=== PATIENT | male | born 1960 | race Caucasian/White ===

== ENCOUNTER 2019-11-25 16:05 | Observation (INO) | payer BC ==
[2019-11-25 16:37] LABS: Absolute Lymphocytes (CBC) 1.9 K/uL (0.7-4.9); Basophils % 0.5 % (0-1.3); Hematocrit 40.9 % (39.6-49.0); Lymphocytes % 17.4 % (15.3-44.8); MPV 8.2 fL (7.6-11.3); RBC Red Blood Cell Count 4.22 M/uL (4.33-5.43)
[2019-11-25 16:38] LABS: Protime INR 0.94
[2019-11-25 17:04] LABS: ALT/SGPT 52 U/L (12-78); Albumin 3.8 g/dL (3.4-5.0); Alkaline Phosphatase 84 U/L (45-117); BUN Blood Urea Nitrogen 23 mg/dL (7-18); Bicarbonate 25 mmol/L (21-32); Bilirubin Direct < 0.1 mg/dL (0-0.2); Bilirubin Total 0.4 mg/dL (0.2-1.0); Glucose Level 227 mg/dL (74-106); NT PRO-BNP 9 pg/mL (<125); Protein, Total 8.2 g/dL (6.4-8.2); Sodium Level 136 mmol/L (136-145); Troponin (Emerg Dept Use Only) < 0.02 ng/mL (0.0-0.045)
[2019-11-25 17:06] LABS: AST/SGOT 30 U/L (15-37); Magnesium 2.3 mg/dL (1.8-2.4); Potassium 4.4 mmol/L (3.5-5.1)
--- NOTE | 2019-11-25 17:10 | RAD REPORT ---
EXAM DESCRIPTION: RAD - Chest Single View - 11/25/2019 4:49 pm CLINICAL HISTORY: CHEST PAIN COMPARISON: None TECHNIQUE: AP portable chest image was obtained 11/25/2019 4:49 pm . FINDINGS: Lungs are clear. Heart and vasculature are normal. No measurable pleural effusion and no p neumothorax. No acute bony abnormality seen. No acute aortic findings suspected. IMPRESSION: No acute cardiopulmonary process.
--- NOTE | 2019-11-25 17:25 | ER ---
Nurse's Notes [facility] Name: Jasper Waller III Age: 59 yrs Sex: Male : 1960 Arrival Date: 11/25/2019 Time: 16:08 Bed 4 Private MD: Diagnosis: Chest pain, unspecified Presentation: 11/24 16:11 Chief complaint: EMS states: midsternal chest pain radiating to left shoulder, started iw at work at 2 pm, pain feels like pressure, denies cough, SOB or fever, EMs gave 1 SL Nitro pain came down to 2/10, initially was 10/10. Coronavirus screen: Proceed with normal triage. Patient denies a cough. Patient denies shortness of breath or difficulty breathing. Patient denies measured and/or subjective temperature greater than 100.4F prior to today's visit. Patient denies travel on a cruise ship or to a country the [facility] currently lists as an affected area. Patient denies contact with known and/or suspected case of COVID-19. Ebola Screen: Patient negative for fever greater than or equal to 101.5 degrees Fahrenheit, and additional compatible Ebola Virus Disease symptoms Patient denies exposure to infectious person. Patient denies travel to an Ebola-affected area in the 21 days before illness onset. No symptoms or risks identified at this time. Initial Sepsis Screen: Does the patient meet any 2 criteria? No. Patient's initial sepsis screen is negative. Does the patient have a suspected source of infection? No. Patient's initial sepsis screen is negative. Risk Assessment: Do you want to hurt yourself or someone else? Patient reports no desire to harm self or others. Onset of symptoms was November 25, 2019. 16:11 Method Of Arrival: EMS: [facility] iw 16:11 Acuity: JOSE 3 iw 16:23 Care prior to arrival: Medication(s) given: ASA, 81 mg, x 4, Nitroglycerin, 0.4 mg SL x iw 1, IV initiated. 20 GA, in the left antecubital area. Historical: - Allergies: 16:17 No Known Allergies; iw - Home Meds: 16:17 lisinopril 40 mg Oral tab 1 tab once daily [Active]; iw - PMHx: 16:17 Hypertension; iw - PSHx: 16:17 None; iw - Immunization history:: Adult Immunizations not up to date. - Social history:: Smoking status: Patient denies any tobacco usage or history of. Screenin:18 Abuse screen: Denies threats or abuse. Denies injuries from another. Nutritional jl7 screening: No deficits noted. Tuberculosis screening: No symptoms or risk factors identified. Fall Risk IV access (20 points). Total Mccormack Fall Scale indicates No Risk (0-24 pts). Assessment: 16:18 General: Appears in no apparent distress. uncomfortable, Behavior is calm, cooperative, jl7 appropriate for age. Pain: Complains of pain in anterior aspect of left upper chest Pain radiates to left arm Pain currently is 2 out of 10 on a pain scale. at worst was 8 out of 10 on a pain scale. Quality of pain is described as pressure, squeezing, Pain began suddenly, Is continuous. Neuro: Level of Consciousness is awake, alert, obeys commands, Oriented to person, place, time, situation. Cardiovascular: Patient's skin is warm and dry. Respiratory: Airway is patent Respiratory effort is even, unlabored, Respiratory pattern is regular, symmetrical. Derm: Skin is pink, warm \T\ dry. 17:30 Reassessment: Patient appears in no apparent distress at this time. No changes from jl7 previously documented assessment. Patient and/or family updated on plan of care and expected duration. Pain level reassessed. Patient is alert, oriented x 3, equal unlabored respirations, skin warm/dry/pink. 19:49 Reassessment: called for report and nurse will call me back. mg2 Vital Signs: 16:11 BP 125 / 77; Pulse 94; Resp 16 S; Pulse Ox 98% on R/A; Weight 102.97 kg; Height 5 ft. iw 11 in. (180.34 cm); Pain 2/10; 16:18 BP 125 / 81; Pulse 90; Resp 17; Pulse Ox 98% ; Pain 2/10; jl7 17:40 BP 122 / 92; Pulse 93; Resp 20; Pulse Ox 98% ; jl7 18:47 BP 138 / 96; Pulse 93; Resp 17; Pulse Ox 98% ; jl7 16:11 Body Mass Index 31.66 (102.97 kg, 180.34 cm) iw ED Course: 16:08 Patient arrived in ED. iw 16:08 Weston Ortiz, RN is Primary Nurse. jl7 16:09 Rolando Lopez PA is PHCP. jr8 16:09 Sam Kim MD is Attending Physician. jr8 16:14 EKG done, by ED staff, reviewed by Rolando WEINBERG. [facility] 16:17 Triage completed. 16:17 Arm band placed on. iw 16:18 Patient has correct armband on for positive identification. Placed in gown. Bed in low jl7 position. Call light in reach. Side rails up X2. school lunch monitor on. Pulse ox on. NIBP on. Warm blanket given. 16:18 Initial lab(s) drawn, by me, sent to lab. Maintain EMS IV. Dressing intact. Good blood jl7 return noted. Site clean \T\ dry. Gauge \T\ site: 20 left AC. Patient maintains SpO2 saturation greater than 95% on room air. 16:49 XRAY Chest (1 view) In Process Unspecified. EDMS 17:24 Eliseo Ibarra DO is Hospitalizing Provider. jr8 17:40 No provider procedures requiring assistance completed. Patient admitted, IV remains in jl7 place. intact, No redness/swelling at site. Administered Medications: No medications were administered Outcome: 17:24 Decision to Hospitalize by Provider. jr8 20:08 Admitted to Med/surg accompanied by tech, via wheelchair, room 218, with chart, Report mg2 called to [place] 20:08 Condition: stable 20:08 Instructed on the need for admit, Demonstrated understanding of instructions. 20:28 Patient left the ED. mg2 Signatures: Dispatcher [employer] EDMS Susan Fields, RN [place] Rolando Lopez PA PA jr8 Weston Ortiz, RN RN 7 Anayeli Perkins [facility] Syd Chiu RN RN mg2
--- NOTE | 2019-11-25 17:25 | EDPHYS ---
Physician Documentation [facility] Name: Jasper Waller III Age: 59 yrs Sex: Male : 1960 Arrival Date: 11/25/2019 Time: 16:08 Bed 4 Private MD: ED Physician Sam Kim HPI: 11/24 17:20 This 59 yrs old Male presents to ER via EMS with complaints of Chest Pain. jr8 17:20 The patient or guardian reports chest pain that is located primarily in the substernal jr8 area. Onset: acutely, today. The pain radiates to the left arm. Associated signs and symptoms: Pertinent positives: shortness of breath. The chest pain is described as a heaviness, a pressure. Duration: The patient or guardian reports a single episode, that is still ongoing, but improving. Modifying factors: The symptoms are alleviated by NTG, X1. the symptoms are aggravated by nothing. Severity of pain: At its worst the pain was moderate in the emergency department the pain has improved. The patient has not experienced similar symptoms in the past. The patient has not recently seen a physician. Historical: - Allergies: 16:17 No Known Allergies; iw - Home Meds: 16:17 lisinopril 40 mg Oral tab 1 tab once daily [Active]; iw - PMHx: 16:17 Hypertension; iw - PSHx: 16:17 None; iw - Immunization history:: Adult Immunizations not up to date. - Social history:: Smoking status: Patient denies any tobacco usage or history of. ROS: 17:20 Eyes: Negative for injury, pain, redness, and discharge, ENT: Negative for injury, jr8 pain, and discharge, Neck: Negative for injury, pain, and swelling, Abdomen/GI: Negative for abdominal pain, nausea, vomiting, diarrhea, and constipation, Back: Negative for injury and pain, MS/Extremity: Negative for injury and deformity, Skin: Negative for injury, rash, and discoloration, Neuro: Negative for headache, weakness, numbness, tingling, and seizure. 17:20 Cardiovascular: Positive for chest pain, Negative for edema, orthopnea, palpitations, paroxysmal nocturnal dyspnea. 17:20 Respiratory: Positive for shortness of breath. Exam: 17:20 Eyes: Pupils equal round and reactive to light, extra-ocular motions intact. Lids and jr8 lashes normal. Conjunctiva and sclera are non-icteric and not injected. Cornea within normal limits. Periorbital areas with no swelling, redness, or edema. ENT: Nares patent. No nasal discharge, no septal abnormalities noted. Tympanic membranes are normal and external auditory canals are clear. Oropharynx with no redness, swelling, or masses, exudates, or evidence of obstruction, uvula midline. Mucous membranes moist. Neck: Trachea midline, no thyromegaly or masses palpated, and no cervical lymphadenopathy. Supple, full range of motion without nuchal rigidity, or vertebral point tenderness. No Meningismus. Cardiovascular: Regular rate and rhythm with a normal S1 and S2. No gallops, murmurs, or rubs. Normal PMI, no JVD. No pulse deficits. Respiratory: Lungs have equal breath sounds bilaterally, clear to auscultation and percussion. No rales, rhonchi or wheezes noted. No increased work of breathing, no retractions or nasal flaring. Abdomen/GI: Soft, non-tender, with normal bowel sounds. No distension or tympany. No guarding or rebound. No evidence of tenderness throughout. Back: No spinal tenderness. No costovertebral tenderness. Full range of motion. Skin: Warm, dry with normal turgor. Normal color with no rashes, no lesions, and no evidence of cellulitis. MS/ Extremity: Pulses equal, no cyanosis. Neurovascular intact. Full, normal range of motion. Neuro: Awake and alert, GCS 15, oriented to person, place, time, and situation. Cranial nerves II-XII grossly intact. Motor strength 5/5 in all extremities. Sensory grossly intact. Cerebellar exam normal. Normal gait. 17:20 ECG was reviewed by the Attending Physician. Vital Signs: 16:11 BP 125 / 77; Pulse 94; Resp 16 S; Pulse Ox 98% on R/A; Weight 102.97 kg; Height 5 ft. iw 11 in. (180.34 cm); Pain 2/10; 16:18 BP 125 / 81; Pulse 90; Resp 17; Pulse Ox 98% ; Pain 2/10; jl7 17:40 BP 122 / 92; Pulse 93; Resp 20; Pulse Ox 98% ; jl7 18:47 BP 138 / 96; Pulse 93; Resp 17; Pulse Ox 98% ; jl7 16:11 Body Mass Index 31.66 (102.97 kg, 180.34 cm) iw MDM: 16:09 Patient medically screened. jr8 17:20 The patient was given aspirin in the Emergency Department. Data reviewed: vital signs, [facility] nurses notes, lab test result(s), EKG, radiologic studies, plain films. Data interpreted: Pulse oximetry: on room air is 98 %. Interpretation: normal. Counseling: I had a detailed discussion with the patient and/or guardian regarding: the historical points, exam findings, and any diagnostic results supporting the discharge/admit diagnosis, lab results, radiology results, the need for further work-up and treatment in the hospital. ED course: Spoke with Dr. Aleman who saw patient in ED. Will obs for r/o . 11/24 16:09 Order name: Basic Metabolic Panel; Complete Time: 17:15 11/24 16:09 Order name: CBC with Diff; Complete Time: 17:15 11/24 16:09 Order name: LFT's; Complete Time: 17:15 11/24 16:09 Order name: Magnesium; Complete Time: 17:15 11/24 16:09 Order name: NT PRO-BNP; Complete Time: 17:15 11/24 16:09 Order name: PT-INR; Complete Time: 17:15 11/24 16:09 Order name: Troponin (emerg Dept Use Only); Complete Time: 17:15 11/24 16:09 Order name: XRAY Chest (1 view); Complete Time: 17:15 11/24 16:09 Order name: EKG; Complete Time: 16:10 11/24 16:09 Order name: Cardiac monitoring; Complete Time: 16:18 11/24 16:09 Order name: EKG - Nurse/Tech; Complete Time: 16:18 11/24 16:09 Order name: IV Saline Lock; Complete Time: 16:18 11/24 16:09 Order name: Labs collected and sent; Complete Time: 16:18 11/24 17:35 Order name: CORONAVIRUS EDMS 11/24 16:09 Order name: O2 Per Protocol; Complete Time: 16:19 11/24 16:09 Order name: O2 Sat Monitoring; Complete Time: 16:19 jr8 EC:20 Rate is 91 beats/min. Rhythm is regular, Normal Sinus Rhythm with Occasional PVCs. QRS jr8 Brothers is Normal. DE interval is normal at 162 msec. QRS interval is normal at 78 msec. QT interval is normal at 423 msec. No Q waves. T waves are Normal. No ST changes noted. Clinical impression: No evidence of ischemia. Interpreted by me. Reviewed by me. Administered Medications: No medications were administered Disposition: 20:59 Co-signature as Attending Physician, Sam Kim MD I agree with the assessment and [facility] plan of care. Disposition: 11/25/19 17:24 Hospitalization ordered by Eliseo Ibarra for Observation. Preliminary diagnosis is Chest pain, unspecified. - Bed requested for Telemetry/MedSurg (observation). - Status is Observation. mg2 - Condition is Stable. - Problem is new. - Symptoms have improved. Signatures: Dispatcher [employer] EDMS Natasha Rose RN RN kl Anderson, Corey, MD MD cha Williams, Irene RN Rolando Maria PA PA jr8 Ana Lilia De La Torre RN RN tl1 Syd Chiu RN RN mg2 Corrections: (The following items were deleted from the chart) 17:52 17:24 Hospitalization Ordered by Eliseo Ibarra DO for Observation. Preliminary diagnosis is Chest pain, unspecified. Bed requested for Telemetry/MedSurg (observation). Status is Observation. Condition is Stable. Problem is new. Symptoms have improved. jr8 19:47 17:52 11/25/2019 17:24 Hospitalization Ordered by Eliseo Ibarra DO for Observation. tl1 Preliminary diagnosis is Chest pain, unspecified. Bed requested for Telemetry/MedSurg (observation). Status is Observation. Condition is Stable. Problem is new. Symptoms have improved. kl 20:28 19:47 11/25/2019 17:24 Hospitalization Ordered by Eliseo Ibarra DO for Observation. mg2 Preliminary diagnosis is Chest pain, unspecified. Bed requested for Telemetry/MedSurg (observation). Status is Observation. Condition is Stable. Problem is new. Symptoms have improved. tl1
--- NOTE | 2019-11-25 18:32 | P.HP ---
Certification for Inpatient Patient admitted to: Observation With expected LOS: <2 Midnights Patient will require the following post-hospital care: None Practitioner: I am a practitioner with admitting privileges, knowledge of patient current condition, hospital course, and medical plan of care. Services: Services provided to patient in accordance with Admission requirements found in Title 42 Section 412.3 of the Code of Federal Regulations Patient History Date of Service: 11/25/19 Primary Care Provider: James Noel Reason for admission: Chest pain History of Present Illness: This is a 59-year-old male with past medical history of hypertension who was at work when he felt an onset of chest pain. Describes chest pain as a pressure in the substernal region of his chest that radiated to his left arm. States that he also became short of breath at the onset. States that he feels like "someone kicked him in the chest". States he was given nitroglycerin in the ambulance. In the emergency room patient is stable. He is in no distress. He continues with the same chest pain and shortness of breath but states that he feels a little better. EKG is fairly unremarkable. Lab work in the ER is fairly unremarkable with negative troponin x1. And chest x-ray shows no acute process. Cardiology was consulted. Patient will be placed in observation and further evaluated. Home medications list reviewed: Yes - Past Medical/Surgical History -: Hypertension -: None Psychosocial/ Personal History: Lives at home - Family History Father -: Liver disease (Cirrhosis) - Social History Smoking Status: Never smoker Place of Residence: Home Review of Systems General: Unremarkable Eyes: Unremarkable ENT: Unremarkable Respiratory: Unremarkable Cardiovascular: Chest Pain Gastrointestinal: Unremarkable Musculoskeletal: Unremarkable Neurological: Unremarkable Physical Examination - Vital Signs Blood Pressure: 125/77 Pulse: 94 Respirations: 16 Pulse Ox (%): 98 (Room air) - Physical Exam General: Alert, In no apparent distress, Oriented x3 HEENT: Atraumatic, Normocephalic, PERRLA Neck: Supple, Other (Trachea midline) Respiratory: Clear to auscultation bilaterally, Normal air movement Cardiovascular: No edema, Regular rate/rhythm, Normal S1 S2 Capillary refill: <2 Seconds Gastrointestinal: Normal bowel sounds, Soft and benign, Non-distended Musculoskeletal: No swelling, No contractures, No erythema Neurological: Normal gait, Normal speech, Normal strength at 5/5 x4 extr, Normal tone - Studies Laboratory Data (last 24 hrs) 11/25/19 16:14: PT 11.1, INR 0.94 11/25/19 16:14: WBC 10.7, Hgb 14.3, Hct 40.9, Plt Count 242 11/25/19 16:14: Sodium 136, Potassium 4.4, BUN 23 H, Creatinine 1.25, Glucose 227 H, Magnesium 2.3, Total Bilirubin 0.4, AST 30, ALT 52, Alkaline Phosphatase 84 Assessment and Plan - Plan Impression: Chest pain: Essential hypertension: Plan: Chest pain: Patient describes sudden onset of chest pain at work. Will continue to trend troponins. Will place on continuous telemetry. Cardiology consulted Dr. Simmons. Patient will likely be discharge in the next 24 hr assuming no acute problems. Essential hypertension: Will resume all medication of lisinopril 40 mg daily. Monitor blood pressure. Discharge Plan: Home Plan to discharge in: 24 Hours - Advance Directives Does patient have a Living Will: No Does patient have a Durable POA for Healthcare: No - Code Status/Comfort Care Code Status Assessed: Yes Time Spent Managing Pts Care (In Minutes): 55
--- NOTE | 2019-11-25 20:39 | CON ---
Date of Consultation: 11/25/2019 Reason For Consultation: Chest pain. History Of Present Illness: This is a 59-year-old male with no known cardiac history, has history of hypertension, presented with chest pain started around 2 p.m. today, retrosternal, radiates to the l eft shoulder. 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 Chest pain lasted for more than 1 hour and sta rted to ease up some, but he still has some pain in the area. Denies having any shortness of breath, diaphoresis, nausea, vomiting, and no other exertional chest pain that he reported. Never had a car diac workup. Past Medical History: Hypertension. Medications: Refer to reconciliation sheet. Allergies: NO KNOWN DRUG ALLERGIES. Social History: Does not smoke or drink. Does not use any drugs. Past Surgical History: None. Family History: No premature coronary artery disease or cancer. Review of Systems: All systems reviewed and they were negative except for mentioned in the HPI. Physical Examination: Vital Signs: Temperature is 98.4, pulse 74, breathing at 18, blood pressure is 147/79, saturating 98 % on room air. General: Pleasant middle-aged male, in no apparent distress. Head and Neck: Pupils are equal, react to light. Intact eye movements. No JVD. No cervical lympha denopathy. Neck is supple. Thyroid is not enlarged. Lungs: Clear to auscultation bilaterally. No rhonchi, rales, or crackles. No accessory muscle use. Heart: Regular rate and rhythm. No extra sounds. Abdomen: Soft, nontender. Bowel sounds positive. No organomegaly. No masses or hernia. No rigidi ty or rebound. Extremities: No, edema, clubbing, or cyanosis. Intact pulses. Skin: No rash. Neurologic: Alert, oriented x3. No acute focal deficits appreciated. Investigations: Troponin is less than 0.02. Creatinine 1.2. EKG is sinus rhythm without acute abno rmalities. Assessment/plan: 1.Chest pain while at work, doing heavy labor. Risk factors including age, hypertension. There are no acute EKG abnormalities. Monitor serial sets of cardiac enzymes and obtain echocardiogram. Furt her recommendations accordingly. Start aspirin 81 mg and obtain lipids. 2.Hypertension. Resume home medications. Thank you for the courtesy of this consultation. /DUDLEY Voice ID: [id number] Report ID: [id number]
[2019-11-25] MEDS ORDERED: ONDANSETRON 4 MG/2 ML VIAL IV PRN (20:56)
[2019-11-25] MEDS ORDERED: ACETAMINOPHEN 500 MG TAB PO PRN (20:56)
[2019-11-25] MEDS ORDERED: ATORVASTATIN 40 MG TAB PO SCH (21:00)
[2019-11-25 21:01] VITALS: BMI 31.9
[2019-11-25] MEDS: lisinopriL 20 MG TAB PO SCH (21:23)
[2019-11-26 01:35] LABS: CKMB Creatine Kinase MB < 1.0 ng/mL (0.3-3.6); Creatine Phosphokinase 54 U/L (39-308); Troponin I < 0.02 ng/mL (0.0-0.045)
[2019-11-26 05:08] LABS: Absolute Lymphocytes (CBC) 1.7 K/uL (0.7-4.9); Basophils % 0.6 % (0-1.3); Hematocrit 42.4 % (39.6-49.0); Lymphocytes % 19.4 % (15.3-44.8); MPV 7.9 fL (7.6-11.3); RBC Red Blood Cell Count 4.44 M/uL (4.33-5.43)
[2019-11-26 05:34] LABS: BUN Blood Urea Nitrogen 20 mg/dL (7-18); Bicarbonate 27 mmol/L (21-32); CKMB Creatine Kinase MB < 1.0 ng/mL (0.3-3.6); Creatine Phosphokinase 47 U/L (39-308); Glucose Level 188 mg/dL (74-106); HDL Cholesterol 31 mg/dL (40-60); Magnesium 2.3 mg/dL (1.8-2.4); Potassium 4.4 mmol/L (3.5-5.1); Sodium Level 137 mmol/L (136-145); Troponin I < 0.02 ng/mL (0.0-0.045)
[2019-11-26 06:14] LABS: LDL, Direct 54 mg/dL (100-129)
[2019-11-26 08:27] VITALS: BP 107/74; TEMP 98.1
[2019-11-26] MEDS: lisinopriL 20 MG TAB PO SCH (08:38)
[2019-11-26] MEDS ORDERED: ASPIRIN EC 81 MG TAB PO SCH (09:00)
[2019-11-26] MEDS ORDERED: ENOXAPARIN 40 MG/0.4 ML SQ SCH (09:00)
--- NOTE | 2019-11-26 09:41 | P.DS ---
Admission Date: 11/25/19 Discharge Date: 11/26/19 Primary Care Provider: James Noel MD Disposition: ROUTINE DISCHARGE Discharge Condition: GOOD Reason for Admission: Chest pain Consultations: Cardiology-Dr. Gilliland/[place] Procedures: Medical problem list: Chest pain, atypical, likely musculoskeletal Essential hypertension Hypertriglyceridemia Obesity, BMI 32 Brief History of Present Illness: 59-year-old male presented to the emergency room with chest pain. Patient was admitted for further evaluation and observation. Patient with history of hypertension. Hospital Course: Patient presented with atypical chest pain. Patient was admitted for observation. Cardiac enzymes unremarkable. Patient seen and evaluated by Cardiology. Cardiology recommended no cardiac intervention at this time. Cardiology recommended follow up in 1 week to further address as an outpatient. Cardiology plans for echocardiogram and outpatient cardiac stress test to further evaluate. Cardiology felt chest pain likely musculoskeletal. Patient may take Tylenol as needed for pain. At discharge patient will continue with aspirin 81 mg daily and lisinopril 40 mg daily. Patient with hypertension. This has remained stable. At discharge he will continue with his medication of lisinopril 40 mg daily. Recommend to maintain blood pressure less than 140/90. Further adjustment may be required if blood pressure not well controlled. Patient found to have elevated triglycerides. Patient with hypertriglyceridemia. Dietary changes addressed in detail. At discharge will recommend to start fish oil 1000 mg 1 pill twice daily. Recommend to recheck fasting lipid panel in 1 month to monitor his progress. Lifestyle modification education addressed in detail. Patient was tested for COVID. Results pending at discharge. CDC guidelines will be provided. Patient to continue practicing social distancing and mask which she does already. Results will be called to him once finalized. Vital Signs/Physical Exam: Temp Pulse Resp BP Pulse Ox 98.1 F 95 H 16 107/74 97 11/26/19 08:00 11/26/19 08:38 11/26/19 08:00 11/26/19 08:38 11/26/19 08:00 General: Alert, In no apparent distress, Oriented x3, Cooperative HEENT: Atraumatic Neck: Supple Respiratory: Clear to auscultation bilaterally, Normal air movement Cardiovascular: Normal pulses, Regular rate/rhythm Gastrointestinal: Normal bowel sounds, Soft and benign, Non-distended, No tenderness, No masses, No rebound, No guarding Musculoskeletal: No erythema, No tenderness, No warmth Integumentary: No tenderness/swelling, No erythema, No warmth, No cyanosis Neurological: Normal speech, Normal strength at 5/5 x4 extr, Normal tone, Normal affect Laboratory Data at Discharge: WBC 9.0 K/uL (4.3-10.9) D 11/26/19 04:41 Hgb 15.1 g/dL (13.6-17.9) 11/26/19 04:41 Hct 42.4 % (39.6-49.0) 11/26/19 04:41 Plt Count 225 K/uL (152-406) 11/26/19 04:41 PT 11.1 SECONDS (9.5-12.5) 11/25/19 16:14 INR 0.94 11/25/19 16:14 Sodium 137 mmol/L (136-145) 11/26/19 04:41 Potassium 4.4 mmol/L (3.5-5.1) 11/26/19 04:41 BUN 20 mg/dL (7-18) H 11/26/19 04:41 Creatinine 1.01 mg/dL (0.55-1.3) 11/26/19 04:41 Glucose 188 mg/dL (74-106) H 11/26/19 04:41 Magnesium 2.3 mg/dL (1.8-2.4) 11/26/19 04:41 Total Bilirubin 0.4 mg/dL (0.2-1.0) 11/25/19 16:14 AST 30 U/L (15-37) 11/25/19 16:14 ALT 52 U/L (12-78) 11/25/19 16:14 Alkaline Phosphatase 84 U/L (45-117) 11/25/19 16:14 Troponin I < 0.02 ng/mL (0.0-0.045) 11/26/19 04:41 Triglycerides 449 mg/dL (<150) H 11/26/19 04:41 Cholesterol 147 mg/dL (<200) 11/26/19 04:41 LDL Cholesterol Direct 54 mg/dL (100-129) L 11/26/19 04:41 HDL Cholesterol 31 mg/dL (40-60) L 11/26/19 04:41 Cholesterol/HDL Ratio 4.74 11/26/19 04:41 Home Medications: lisinopriL [Lisinopril] 40 mg PO DAILY 11/25/19 Aspirin [Aspirin EC 81 MG] 81 mg PO DAILY #90 tablet. 11/26/19 Docosahexanoic AC/Epa [Fish Oil 1,000 MG CAP] 1 cap PO BID #60 cap 11/26/19 New Medications: Aspirin [Aspirin EC 81 MG] 81 mg PO DAILY #90 tablet. Docosahexanoic AC/Epa [Fish Oil 1,000 MG CAP] 1 cap PO BID #60 cap Patient Discharge Instructions: 1. Recommend follow up with PCP in 1 week to follow up this hospitalization. 2. Patient presented with atypical chest pain. Patient was admitted for observation. Cardiac enzymes unremarkable. Patient seen and evaluated by Cardiology. Cardiology recommended no cardiac intervention at this time. Cardiology recommended follow up in 1 week to further address as an outpatient. Cardiology plans for echocardiogram and outpatient cardiac stress test to further evaluate. Cardiology felt chest pain likely musculoskeletal. Patient may take Tylenol or ibuprofen as needed for pain. At discharge patient will continue with aspirin 81 mg daily and lisinopril 40 mg daily. 3. Patient with hypertension. This has remained stable. At discharge he will continue with his medication of lisinopril 40 mg daily. Recom mend to maintain blood pressure less than 140/90. Further adjustment may be required if blood pressure not well controlled. 4. Patient found to have elevated triglycerides. Patient with hypertriglyceridemia. Dietary changes addressed in detail. At discharge will recommend to start fish oil 1000 mg 1 pill twice daily. Recommend to recheck fasting lipid panel in 1 month to monitor his progress. Lifestyle modification education addressed in detail. 5. Patient was tested for COVID. Results pending at discharge. CDC guidelines will be provided. Patient to continue practicing social distancing and mask which she does already. Results will be called to him once finalized. Diet: AHA Activity: Ad clifford Time spent managing pt's care (in minutes): 55
[2019-11-26 10:05] VITALS: O2SAT 97
--- NOTE | 2019-11-26 10:57 | EKG ---
Test Date: 2019-11-25 Test Time: 16:09:28 Cage Clerk: SERGIO MEASUREMENT RESULTS: Intervals: Rate: 91 WI: 162 QRSD: 78 QT: 344 QTc: 423 [place]: P: 53 WI: 162 QRS: 30 T: 63 INTERPRETIVE STATEMENTS: Sinus rhythm with occasional premature ventricular complexes Otherwise normal ECG No previous ECG available for comparison Electronically Signed On 11-26-19 10:54:05 CDT by Jonah Gilliland
--- NOTE | 2019-11-27 00:04 | PN ---
Date of Progress Note: 11/26/2019 History Of Present Illness: Mr. Waller was admitted by Dr. Ibarra for atypical chest pain and hyperten anastacia. He only takes lisinopril at home. He has ruled out for an TX. So far, his CPK-MB, troponin, and BNPs are negative. His EKG is unremarkable. His symptoms are suggestive and that has started wh en he was doing work. However, he complains that the symptoms are worse when he lays on his left miles e. Denies any nausea, vomiting, diaphoresis, PND, orthopnea, pedal edema, palpitations, or syncope. He had a normal workup so far including EKG, chest x-ray, and echocardiogram. Mr. Waller was suggeste d to have a stress test, but he prefers to have that as an outpatient. He can go home today. I woul d recommend he is on a low-dose beta-marcela and aspirin and I will see him in the office soon after his stress test. ROGER/DUDLEY Voice ID: [id number] Report ID: [id number]
== END 2019-11-26 10:15 | disposition home or self-care (01) ==
LOC: ER 16:05 → ERHOLD 17:27 → 2ND 20:07
PROVIDERS: ADMIT Family Medicine; ATTEND Family Medicine
DX: R07.89 Other chest pain (principal); I10 Essential (primary) hypertension; E78.1 Pure hyperglyceridemia; E66.9 Obesity, unspecified; Z68.32 Body mass index [BMI] 32.0-32.9, adult; R06.02 Shortness of breath; Z20.828 Contact with and (suspected) exposure to other viral communicable diseases; I49.3 Ventricular premature depolarization; Z79.899 Other long term (current) drug therapy
CPT/HCPCS: 93005; 85025 ×2; 80048 ×2; 36415; 83721; 83735 ×2; 82550 ×2; 85610; 80061; 80076; 84443; 84484 ×3; 82553 ×2; 84439; 83880; 71045; 99285; J1650; G0378 ×3

== ENCOUNTER 2022-10-07 09:57 | Emergency (ER) | payer BC ==
--- OUTSIDE RECORDS SUMMARY | 2022-10-07 10:00 | XMS REPORT | Continuity of Care Document ---
:1960 Author Organization [facility] t Address [address] [place] [address] Care Team Providers Name Role Phone THERESA ELIZONDO Attending Clinician Unavailable LETICIA HERNANDEZ Attending Clinician Unavailable David RESENDIZ, Leticia Garcia Attending Clinician [phone] Payers Payer Name Policy Type Policy Number Effective Date Expiration Date S mansi [facility] 2 [id number] 2020 00:00:00 Problems Condition Condition Condition Status Onset Resolution Last Treating Co mments Source Name Details Category Date Date Treatment Clinician Date Essential Essential Disease Active 2020-05 Ajay greene hypertensi hypertensi 0-29 Se ybold on - on - 00:00: - Controlled Controlled 00 Ex terna l No known No known Disease Kelse y active active Seybold problems problems Allergies, Adverse Reactions, Alerts This patient has no known allergies or adverse reactions. Social History Social Habit Start Date Stop Date Quantity Comments Source Exposure to Not sure Inge royal SARS-CoV-2 (event) Tobacco use and 2021-02-17 2021-02-17 Smokeless tobacco Beto Abdiold - exposure 00:00:00 00:00:00 non-user External Sex Ass[birth year] At [birth year] Inge mansfield - 00:00:00 00:00:00 External Smoking Status Start Date Stop Date Source Never smoked tobacco Inge garland - External Medications Ordered Filled Start Stop Current Ordering Indication Dosage Frequency Signature Comments Components Source Medication Medication Date Date Medication? Clinician (SIG) Name Name Santopril Yes [id number] 20mg Take 1 K elsey 20 MG oral 3-20 tablet (20 Sey bold Tablet 00:00: mg total) - 00 by mouth Externa daily l Lisinopril 2022- No [id number] 20mg Take 1 Inge 20 MG oral 3-07 03-20 tablet (20 Se ybold Tablet 00:00: 00:00 mg total) - 00 :00 by mouth Externa daily l Lisinopril 2020-05 Yes [id number] 20mg Take 1 K elsey 20 MG oral 0-29 tablet (20 Sey bold Tablet 00:00: mg total) 00 by mouth daily Lisinopril 2020- No 20mg Take 20 mg Inge 20 MG oral 9-29 09-29 by mouth Seyb old Tablet 08:36: 00:00 daily 00 :00 Lisinopril Yes [id number] 20mg Take 1 K elsey 20 MG oral 9-29 tablet (20 Sey bold Tablet 00:00: mg total) 00 by mouth daily Lisinopril 2020- No [id number] 20mg Take 1 Inge 20 MG oral 9-29 10-29 tablet (20 Se ybold Tablet 00:00: 00:00 mg total) 00 :00 by mouth daily Immunizations Ordered Immunization Filled Immunization Date Status Commen ts Source Name Name Tdap- (Boostrix, 2017-09-20 Completed Inge lynchbodasia Adacel) 00:00:00 Tdap- (Boostrix, 2017-09-20 Completed Inge lynchbodasia Adacel) 00:00:00 Tdap- (Boostrix, 2017-09-20 Completed Inge lynchbodasia Adacel) 00:00:00 - External Vital Signs Vital Name Observation Time Observation Value Comments Source Systolic blood 2022-08-08 21:10:00 120 mm[Hg] Inge Seybold - pressure External Diastolic blood 2022-08-08 21:10:00 72 mm[Hg] Kelse y Seybold - pressure External Heart rate 2022-08-08 21:10:00 71 /min Inge lynchbold - External Body temperature 2022-08-08 21:10:00 36.56 Lucina Susu ey Seybold - External Respiratory rate 2022-08-08 21:10:00 15 /min Susu ey Seybold - External Body height 2022-08-08 21:10:00 180.3 cm Inge S eybold - External Body weight 2022-08-08 21:10:00 98.431 kg Inge Chadwick eybold - External BMI 2022-08-08 21:10:00 30.27 kg/m2 Inge Chadwick eybold - External Systolic blood 2021-03-19 13:03:00 132 mm[Hg] Inge Seybold pressure Diastolic blood 2021-03-19 13:03:00 86 mm[Hg] Kelse y Seybold pressure Heart rate 2021-03-19 13:03:00 76 /min Inge S eybold Body temperature 2021-03-19 13:03:00 36.61 Lucina Susu ey Seybold Respiratory rate 2021-03-19 13:03:00 15 /min Susu ey Seybold Body height 2021-03-19 13:03:00 180.3 cm Inge S eybold Body weight 2021-03-19 13:03:00 101.606 kg Inge S eybold BMI 2021-03-19 13:03:00 31.24 kg/m2 Inge S eybold Systolic blood 2021-02-17 13:13:00 160 mm[Hg] Inge Seybold pressure Diastolic blood 2021-02-17 13:13:00 102 mm[Hg] Kelse y Seybold pressure Body temperature 2021-02-17 13:13:00 36.11 Lucina Susu ey Seybold Respiratory rate 2021-02-17 13:13:00 14 /min Susu ey Seybold Body height 2021-02-17 13:13:00 180.3 cm Inge S eybold Body weight 2021-02-17 13:13:00 100.336 kg Inge S eybold BMI 2021-02-17 13:13:00 30.85 kg/m2 Inge Chadwick eybold Procedures This patient has no known procedures. Encounters Start End Encounter Admission Attending Care Care Encounter Source Date/Time Date/Time Type Type Clinicians Facility Department ID 2022-10-07 2022-10-07 Outpatient INGE ELIZONDO [id number] Inge 00:00:00 00:00:00 THERESA Seybol d 2022-08-08 2022-08-08 Outpatient INGE HERNANDEZ [id number] Inge 16:15:00 16:15:00 LETICIA Seybol d 2022-07-26 2022-07-26 Outpatient INGE HERNANDEZ [id number] Inge 00:00:00 00:00:00 LETICIA Seybol d 2022-07-26 2022-07-26 Outpatient INGE HERNANDEZ [id number] Inge 00:00:00 00:00:00 LETICIA Seybol d 2022-07-05 2022-07-05 Outpatient INGE HERNANDEZ [id number] Inge 16:00:00 16:00:00 LETICIA Seybol d 2022-06-16 2022-06-16 Outpatient INGE HERNANDEZ [id number] Inge 00:00:00 00:00:00 LETICIA Seybol d 2022-06-06 2022-06-06 Outpatient INGE HERNANDEZ [id number] Inge 00:00:00 00:00:00 LETICIA Seybol d 2022-05-09 2022-05-09 Outpatient INGE HERNANDEZ [id number] Inge 00:00:00 00:00:00 LETICIA Seybol d 2022-05-09 2022-05-09 Outpatient INGE HERNANDEZ [id number] Inge 00:00:00 00:00:00 LETICIA Seybol d 2021-04-14 2021-04-14 Outpatient INGE HERNANDEZ [id number] Inge 16:30:00 16:30:00 LETICIA Seybol d 2021-04-07 2021-04-07 Outpatient INGE HERNANDEZ [id number] Inge 00:00:00 00:00:00 LETICIA Seybol d 2021-03-19 2021-03-19 Office Jay Hernandez [id number] Inge 07:57:49 08:27:49 Visit Leticia Smith 350...13 Se donal Garcia [id number] 2021-02-17 2021-02-17 Office Jay Hernandez [id number] Inge 08:11:36 08:41:36 Visit Leticia Smith 350.1..13 Se donal Garcia [id number] Results This patient has no known results.
[2022-10-07] MEDS ORDERED: SMZ./TMP. 800/160 MG TABLET ONE (10:16)
[2022-10-07] MEDS ORDERED: CEPHALEXIN 250 MG CAP ONE (10:16)
[2022-10-07] MEDS ORDERED: DIPHENHYDRAMINE 25 MG TAB/CAP ONE (10:16)
[2022-10-07] MEDS ORDERED: FAMOTIDINE 20 MG TAB ONE (10:17)
[2022-10-07] MEDS ORDERED: MUPIROCIN 2% OINT 22GM TUBE TOP ONE (10:17)
[2022-10-07] MEDS ORDERED: TETANUS & DIPHTHERIA TOX,ADULT 0.5 ML VIAL ONE (10:36)
--- NOTE | 2022-10-07 10:37 | EDPHYS ---
Physician Documentation [facility] Name: Jasper Waller III Age: 62 yrs Sex: Male : 1960 Arrival Date: 10/07/2022 Time: 09:57 Bed 6 Private MD: ED Physician Sam Kim HPI: 10/07 10:30 This 62 yrs old Male presents to ER via Ambulatory with complaints of Bee layo Sting. 10:30 The patient or guardian reports decreased range of motion, pain, swelling, tenderness. layo The complaints affect the right hand. Context: The problem was sustained at home. Onset: The symptoms/episode began/occurred 2 day(s) ago. Modifying factors: The symptoms are alleviated by elevation, holding still, the symptoms are aggravated by movement, dependent position. Associated signs and symptoms: Pertinent positives:. Severity of symptoms: At their worst the symptoms were mild, in the emergency department the symptoms are actually worse. The patient has not experienced similar symptoms in the past. Historical: - Allergies: 10:06 No Known Allergies; hb - Home Meds: 10:06 lisinopril 20 mg oral tablet [Active]; hb - PMHx: 10:06 Hypertension; hb - Immunization history:: Adult Immunizations up to date. - Social history:: Smoking status: Patient denies any tobacco usage or history of. ROS: 10:31 Constitutional: Negative for fever, chills, and weight loss, Eyes: Negative for injury, layo pain, redness, and discharge, ENT: Negative for injury, pain, and discharge, Neck: Negative for injury, pain, and swelling, Cardiovascular: Negative for chest pain, palpitations, and edema, Respiratory: Negative for shortness of breath, cough, wheezing, and pleuritic chest pain, Abdomen/GI: Negative for abdominal pain, nausea, vomiting, diarrhea, and constipation, Back: Negative for injury and pain, : Negative for injury, bleeding, discharge, and swelling, Skin: Negative for injury, rash, and discoloration, Neuro: Negative for headache, weakness, numbness, tingling, and seizure, Psych: Negative for depression, anxiety, suicide ideation, homicidal ideation, and hallucinations, Allergy/Immunology: Negative for hives, rash, and allergies, Endocrine: Negative for neck swelling, polydipsia, polyuria, polyphagia, and marked weight changes, Hematologic/Lymphatic: Negative for swollen nodes, abnormal bleeding, and unusual bruising. 10:31 MS/extremity: Positive for ecchymosis, erythema, pain, swelling, tenderness, of the right hand. Exam: 10:31 Constitutional: This is a well developed, well nourished patient who is awake, alert, layo and in no acute distress. Head/Face: Normocephalic, atraumatic. Eyes: Pupils equal round and reactive to light, extra-ocular motions intact. Lids and lashes normal. Conjunctiva and sclera are non-icteric and not injected. Cornea within normal limits. Periorbital areas with no swelling, redness, or edema. ENT: Nares patent. No nasal discharge, no septal abnormalities noted. Tympanic membranes are normal and external auditory canals are clear. Oropharynx with no redness, swelling, or masses, exudates, or evidence of obstruction, uvula midline. Mucous membranes moist. Neck: Trachea midline, no thyromegaly or masses palpated, and no cervical lymphadenopathy. Supple, full range of motion without nuchal rigidity, or vertebral point tenderness. No Meningismus. Chest/axilla: Normal chest wall appearance and motion. Nontender with no deformity. No lesions are appreciated. Cardiovascular: Regular rate and rhythm with a normal S1 and S2. No gallops, murmurs, or rubs. Normal PMI, no JVD. No pulse deficits. Respiratory: Lungs have equal breath sounds bilaterally, clear to auscultation and percussion. No rales, rhonchi or wheezes noted. No increased work of breathing, no retractions or nasal flaring. Abdomen/GI: Soft, non-tender, with normal bowel sounds. No distension or tympany. No guarding or rebound. No evidence of tenderness throughout. Back: No spinal tenderness. No costovertebral tenderness. Full range of motion. Male : Normal genitalia with no discharge or lesions. Skin: Warm, dry with normal turgor. Normal color with no rashes, no lesions, and no evidence of cellulitis. Neuro: Awake and alert, GCS 15, oriented to person, place, time, and situation. Cranial nerves II-XII grossly intact. Motor strength 5/5 in all extremities. Sensory grossly intact. Cerebellar exam normal. Normal gait. Psych: Awake, alert, with orientation to person, place and time. Behavior, mood, and affect are within normal limits. 10:31 Musculoskeletal/extremity: Extremities: grossly normal except: decreased ROM, erythema, pain, swelling, tenderness, ROM: full active range of motion, full passive range of motion, limited active range of motion due to pain, limited passive range of motion due to pain, in the right hand, Circulation is intact in all extremities. Sensation intact. Compartment Syndrome exam of affected extremity: is normal. DVT Exam: negative Homans' sign noted on exam, no appreciated bluish discoloration, pain, swelling, tenderness, erythema, increased warmth. Vital Signs: 10:05 BP 143 / 96; Pulse 98; Resp 16; Temp 98; Pulse Ox 97% on R/A; Weight 83.91 kg; Height 5 hb ft. 11 in. ; Pain 3/10; 10:05 Body Mass Index 25.80 (83.91 kg, 180.34 cm) hb 10:05 Pain Scale: Adult hb Procedures: 10:42 I \T\ D: Incision and drainage was performed for an abscess of the right Prepped with layo alcohol, Anesthetized with nothing. Incised with 18 gauge needle. Drained small amount serosanguinous fluid. Dressing: non-Adherent dressing, the patient tolerated the procedure well. MDM: 10:04 Patient medically screened. layo 10:33 Differential diagnosis: contusion, tendonitis. Data reviewed: vital signs, nurses layo notes. Consideration of Admission/Observation Escalation of care including admission/observation considered. I considered the following discharge prescriptions or medication management in the emergency department Medications were administered in the Emergency Department. See MAR. Test considered but Not performed: Labs: no labs. Care significantly affected by the following chronic conditions: Hypertension. Administered Medications: 10:20 Drug: Mupirocin Topical Ointment 2 % 1 application Route: Topical; Site: affected area; ph 10:33 Follow up: Response: No adverse reaction ph 10:20 Drug: Trimethoprim-Sulfamethoxazole PO (160 mg-800 mg (DS) 1 tablet Route: PO; ph 10:33 Follow up: Response: No adverse reaction ph 10:20 Drug: diphenhydrAMINE PO 25 mg Route: PO; ph 10:33 Follow up: Response: No adverse reaction ph 10:20 Drug: Famotidine PO 40 mg Route: PO; ph 10:33 Follow up: Response: No adverse reaction ph 10:20 Drug: Cephalexin PO 500 mg Route: PO; ph 10:34 Follow up: Response: No adverse reaction ph 10:33 Drug: Tetanus Toxoid,Adsorbed IM 0.5 ml {Leaf Sorter: [employer]. Exp: 10/30/2023. ph Lot #: [id number]. } Route: IM; Site: right deltoid; 10:34 Follow up: Response: No adverse reaction ph Disposition Summary: 10/07/22 10:36 Discharge Ordered Location: Home [facility] Problem: new layo Symptoms: have improved layo Condition: Stable layo Diagnosis - Toxic effect of venom of bees, accidental (unintentional) layo - Cellulitis of unspecified finger layo Followup: layo - With: Private Physician - When: 2 - 3 days - Reason: Recheck today's complaints, Continuance of care, Re-evaluation by your physician Followup: [facility] - With: Jayy Mcdaniel MD - When: 2 - 3 days - Reason: Recheck today's complaints, Continuance of care, Re-evaluation by your physician Discharge Instructions: - Bee, Wasp, or Hornet Sting, Adult layo - Cellulitis, Adult layo - Cellulitis, Adult, [id number] [facility] - Discharge Summary Sheet ph Forms: - Medication Reconciliation Form [facility] - Thank You Letter [facility] - Antibiotic Education [facility] - Prescription Opioid Use [facility] - Work release form ph Prescriptions: - Centany 2 % Topical ointment - apply 1 application by TOPICAL route 3 times per day; 15 gram tube; Refills: 0, [facility] Product Selection Permitted - Benadryl 25 mg Oral Capsule - take 1 capsule by ORAL route every 6 hours As needed; 30 tablet; Refills: 0, [facility] Product Selection Permitted - Cephalexin 500 mg Oral Capsule - take 1 capsule by ORAL route every 6 hours for 10 days; 40 capsule; Refills: 0, [facility] Product Selection Permitted - Pepcid 20 mg Oral Tablet - take 1 tablet by ORAL route every 12 hours for 21 days; 42 tablet; Refills: 0, [facility] Product Selection Permitted - Bactrim DS 800-160 mg Oral Tablet - take 1 tablet by ORAL route every 12 hours for 10 days; 20 tablet; Refills: 0, [facility] Product Selection Permitted Signatures: Sam Kim MD MD cha Hall, Patricia, RN RN Cristina Can RN RN
--- NOTE | 2022-10-07 10:37 | ER ---
Nurse's Notes [facility] Name: Jasper Waller III Age: 62 yrs Sex: Male : 1960 Arrival Date: 10/07/2022 Time: 09:57 Bed 6 Private MD: Diagnosis: Toxic effect of venom of bees, accidental (unintentional);Cellulitis of unspecified finger Presentation: 10/07 10:05 Chief complaint: Right hand pain and swelling after stung by yellow jacket 2 days ago. hb Coronavirus screen: At this time, the client does not indicate any symptoms associated with coronavirus-19. Ebola Screen: No symptoms or risks identified at this time. Onset: The symptoms/episode began/occurred 2 day(s) ago. Anaphylaxis evaluation, no signs or symptoms of anaphylaxis were noted. Initial Sepsis Screen: Does the patient meet any 2 criteria? No. Patient's initial sepsis screen is negative. Does the patient have a suspected source of infection? No. Patient's initial sepsis screen is negative. Risk Assessment: Do you want to hurt yourself or someone else? Patient reports no desire to harm self or others. Onset of symptoms was October 05, 2022. 10:05 Method Of Arrival: Ambulatory hb 10:05 Acuity: JOSE 4 hb Historical: - Allergies: 10:06 No Known Allergies; hb - Home Meds: 10:06 lisinopril 20 mg oral tablet [Active]; hb - PMHx: 10:06 Hypertension; hb - Immunization history:: Adult Immunizations up to date. - Social history:: Smoking status: Patient denies any tobacco usage or history of. Screenin:03 [facility] ED Fall Risk Assessment (Adult) History of falling in the last 3 months, ph including since admission No falls in past 3 months (0 pts) Confusion or Disorientation No (0 pts) Intoxicated or Sedated No (0 pts) Impaired Gait No (0 pts) Mobility Assist Device Used No (0 pt) Altered Elimination No (0 pt) Score/Fall Risk Level 0 - 2 = Low Risk Oriented to surroundings, Maintained a safe environment, Hourly rounding (assess needs \T\ fall precautionary measures) done. Abuse screen: Denies threats or abuse. Denies injuries from another. Nutritional screening: No deficits noted. Tuberculosis screening: No symptoms or risk factors identified. Assessment: 10:18 General: Appears in no apparent distress. uncomfortable, Behavior is calm, cooperative, ph appropriate for age, Denies fever, feeling ill. Pain: Complains of pain in dorsal aspect of distal phalanx of right middle finger and dorsal aspect of middle phalanx of right ring finger. Neuro: Level of Consciousness is awake, alert, obeys commands, Oriented to person, place, time, situation. Cardiovascular: Capillary refill < 3 seconds in bilateral Patient's skin is warm and dry. Respiratory: Airway is patent Respiratory effort is even, unlabored, Breath sounds are clear bilaterally. Denies shortness of breath. GI: No signs and/or symptoms were reported involving the gastrointestinal system. Derm: Skin is pink, warm \T\ dry. Injury Description: Bite sustained to dorsal aspect of distal phalanx of right middle finger and dorsal aspect of middle phalanx of right ring finger caused by yellow jacket. Vital Signs: 10:05 BP 143 / 96; Pulse 98; Resp 16; Temp 98; Pulse Ox 97% on R/A; Weight 83.91 kg; Height 5 hb ft. 11 in. ; Pain 3/10; 10:05 Body Mass Index 25.80 (83.91 kg, 180.34 cm) hb 10:05 Pain Scale: Adult hb ED Course: 09:58 Patient arrived in ED. rg4 09:59 Sam Kim MD is Attending Physician. layo 10:01 Alma Ojeda, RN is Primary Nurse. ph 10:04 Patient has correct armband on for positive identification. Bed in low position. Call ph light in reach. Side rails up X 1. Door closed. Noise minimized. Warm blanket given. 10:06 Triage completed. hb 10:06 Patient placed. hb 10:18 No provider procedures requiring assistance completed. Patient did not have IV access ph during this emergency room visit. 10:35 Jayy Mcdaniel MD is Referral Physician. layo Administered Medications: 10:20 Drug: Mupirocin Topical Ointment 2 % 1 application Route: Topical; Site: affected area; ph 10:33 Follow up: Response: No adverse reaction ph 10:20 Drug: Trimethoprim-Sulfamethoxazole PO (160 mg-800 mg (DS) 1 tablet Route: PO; ph 10:33 Follow up: Response: No adverse reaction ph 10:20 Drug: diphenhydrAMINE PO 25 mg Route: PO; ph 10:33 Follow up: Response: No adverse reaction ph 10:20 Drug: Famotidine PO 40 mg Route: PO; ph 10:33 Follow up: Response: No adverse reaction ph 10:20 Drug: Cephalexin PO 500 mg Route: PO; ph 10:34 Follow up: Response: No adverse reaction ph 10:33 Drug: Tetanus Toxoid,Adsorbed IM 0.5 ml {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 Exp: 10/30/2023. ph Lot #: [id number]. } Route: IM; Site: right deltoid; 10:34 Follow up: Response: No adverse reaction ph Medication: 10:04 VIS not applicable for this client. ph Outcome: 10:36 Discharge ordered by . layo 10:46 Discharged to home ambulatory. ph 10:46 Condition: good 10:46 Discharge instructions given to patient, Instructed on discharge instructions, follow up and referral plans. medication usage, Demonstrated understanding of instructions, follow-up care, medications, Prescriptions given X 5 10:47 Patient left the ED. ph Signatures: Sam Kim MD MD cha Hall, Patricia, RN RN ph Cristina Can, RICO RN Jeniffer Amaya rg4
[2022-10-07 10:52] VITALS: BP 143/96; TEMP 98; O2SAT 97
== END 2022-10-07 10:47 | disposition home or self-care (01) ==
LOC: ER 09:57
PROC: 0H9FXZZ Drainage of Right Hand Skin, External Approach (ICD-10-PCS; principal; 2022-10-07)
DX: L03.011 Cellulitis of right finger (principal); T63.441A Toxic effect of venom of bees, accidental (unintentional), initial encounter; I10 Essential (primary) hypertension; Z23 Encounter for immunization
CPT/HCPCS: 90714

== ENCOUNTER 2024-03-20 12:50 | Emergency (ER) | payer BC ==
--- OUTSIDE RECORDS SUMMARY | 2024-03-20 12:53 | XMS REPORT | Continuity of Care Document ---
Author Name Unknown Address [address] [facility] [address] [facility] Address [address] [facility] [address] [place] [address] Care Team Providers Care Tower Switch Operator Name Role Phone THERESA IBARRA Attending Clinician Unavailable TIP ROSARIO Attending Clinician Unavailable LETICIA KYLE Attending Clinician Unava ilable LAB90 Attending Clinician Unavailable Saroj RESENDIZ, Leticia Garcia Attending Clinician [phone] Payers Payer Name Policy Type Policy Number Effective Date Expirati on Date Source BCBS 2 [id number] 2020 00:00:00 Problems Condition Name Condition Details Condition Category Status Onset Date Resolution Date Last Treatment Date Treating Clinician Comments Source Essential hypertensi on - Controlled Essential hypertensi on - Controlled Disease Active 2020-05 00:00: 00 Inge Anne - Externa l No known active problems No known active problems Disease Inge Anne Social History Social Habit Start Date Stop Date Quantity Comments Source Gender identity Susu Anne - External Sexual orientation K joo Anne - External Exposure to SARS-CoV-2 (event) Not sure Inge mansfield Tobacco use and exposure 2023-05-05 00:00:00 2023-05-05 00:00:00 Smokeless tobacco non-user Inge Anne - External History of Social function 2022-12-23 00:00:00 2022-12-23 00:00:00 Inge Seybold - External Sex assigned at 1960 00:00:00 1960 00:00:00 Inge Fraire Smoking Status Start Date Stop Date Source Never smoked tobacco Inge Fraire Medications Ordered Medication Name Filled Medication Name Start Date Stop Date Current Medication? Ordering Clinician Indication Dosage Frequency Signature (SIG) Comments Components Source Benzonatate (Tessalon Perles) 100 MG oral Capsule 2022-05 00:00: 00 01-08 00:00 :00 No [id number] 100mg [id number] 3D Take 1 capsule (100 mg total) by mouth 3 times daily as needed for cough. Inge white Oseltamivir Phosphate 75 MG oral Capsule 2022-05 00:00: 00 05-11 05:59 :00 No [id number] 75mg Take 1 capsule (75 mg total) by mouth 2 times daily for 5 days. Inge white Lisinopril 20 MG oral Tablet 8-04 00:00: 00 Yes [id number] 20mg QD Take 1 tablet (20 mg total) by mouth daily Inge white Lisinopril 20 MG oral Tablet 08-08 00:00: 00 Yes [id number] 20mg Take 1 tablet (20 mg total) by mouth daily Inge white Lisinopril 20 MG oral Tablet 3-07 00:00: 00 08-08 00:00 :00 No [id number] 20mg Take 1 tablet (20 mg total) by mouth daily Inge white Lisinopril 20 MG oral Tablet 2020-05 00:00: 00 Yes [id number] 20mg Take 1 tablet (20 mg total) by mouth daily Inge Anne Lisinopril 20 MG oral Tablet 02-17 08:36: 00 02-17 00:00 :00 No 20mg Take 20 mg by mouth daily Inge Anne Lisinopril 20 MG oral Tablet 02-17 00:00: 00 Yes [id number] 20mg Take 1 tablet (20 mg total) by mouth daily Inge Seybold Immunizations Ordered Immunization Name Filled Immunization Name Date Status Comments Source Tdap- (Boostrix, Adacel) 2017-09-20 00:00:00 Completed Inge Anne Tdap- (Boostrix, Adacel) 2017-09-20 00:00:00 Completed Inge Abdiold Tdap- (Boostrix, Adacel) 2017-09-20 00:00:00 Completed Inge Abdiold - External Tdap- (Boostrix, Adacel) 2017-09-20 00:00:00 Completed Inge Lawsybold - External Tdap- (Boostrix, Adacel) Unknown Completed Inge Lawsybold - External Tdap- (Boostrix, Adacel) Unknown Completed Inge Lawsybold - External Vital Signs Vital Name Observation Time Observation Value Comments S ource Systolic blood pressure 2024-01-09 12:53:00 102 mm[Hg] Inge Lawsybo ld - External Diastolic blood pressure 2024-01-09 12:53:00 70 mm[Hg] Inge Seybo ld - External Heart rate 2024-01-09 12:53:00 85 /min Kelse y Seybold - External Body temperature 2024-01-09 12:53:00 36.17 Lucina Inge Seybold - External Respiratory rate 2024-01-09 12:53:00 14 /min Inge Lawsybold - External Body height 2024-01-09 12:53:00 180.3 cm Susu ey Seybold - External Body weight 2024-01-09 12:53:00 98.249 kg Susu ey Seybold - External BMI 2024-01-09 12:53:00 30.21 kg/m2 Susu ey Seybold - External Systolic blood pressure 2023-05-05 22:03:00 132 mm[Hg] Inge Seybo ld - External Diastolic blood pressure 2023-05-05 22:03:00 80 mm[Hg] Inge Seybo ld - External Heart rate 2023-05-05 22:03:00 102 /min Kelse y Seybold - External Body temperature 2023-05-05 22:03:00 38.83 Lucina Inge Seybold - External Body height 2023-05-05 22:03:00 180.3 cm Susu ey Seybold - External Body weight 2023-05-05 22:03:00 96.616 kg Susu ey Seybold - External BMI 2023-05-05 22:03:00 29.71 kg/m2 Susu ey Seybold - External Oxygen saturation in Arterial blood by Pulse oximetry 2023-05-05 22:03:00 97 /min Inge Seybo ld - External Systolic blood pressure 2022-12-23 21:10:00 122 mm[Hg] Inge Seybo ld - External Diastolic blood pressure 2022-12-23 21:10:00 74 mm[Hg] Inge Seybo ld - External Heart rate 2022-12-23 21:10:00 81 /min Kelse y Seybold - External Body temperature 2022-12-23 21:10:00 36.94 Lucina Inge Seybold - External Respiratory rate 2022-12-23 21:10:00 14 /min Inge Seybold - External Body height 2022-12-23 21:10:00 180.3 cm Susu ey Seybold - External Body weight 2022-12-23 21:10:00 101.243 kg Susu ey Seybold - External BMI 2022-12-23 21:10:00 31.13 kg/m2 Susu ey Seybold - External Oxygen saturation in Arterial blood by Pulse oximetry 2022-12-23 21:10:00 96 /min Inge Seybo ld - External Systolic blood pressure 2022-08-08 21:10:00 120 mm[Hg] Inge Seybo ld - External Diastolic blood pressure 2022-08-08 21:10:00 72 mm[Hg] Inge Seybo ld - External Heart rate 2022-08-08 21:10:00 71 /min Kelse y Seybold - External Body temperature 2022-08-08 21:10:00 36.56 Lucina Inge Seybold - External Respiratory rate 2022-08-08 21:10:00 15 /min Inge Seybold - External Body height 2022-08-08 21:10:00 180.3 cm Susu ey Seybold - External Body weight 2022-08-08 21:10:00 98.431 kg Susu ey Seybold - External BMI 2022-08-08 21:10:00 30.27 kg/m2 Susu ey Seybold - External Systolic blood pressure 2021-03-19 13:03:00 132 mm[Hg] Inge Seybo ld Diastolic blood pressure 2021-03-19 13:03:00 86 mm[Hg] Inge Seybo ld Heart rate 2021-03-19 13:03:00 76 /min Kelse y Seybold Body temperature 2021-03-19 13:03:00 36.61 Lucina Inge Seybold Respiratory rate 2021-03-19 13:03:00 15 /min Inge Seybold Body height 2021-03-19 13:03:00 180.3 cm Susu ey Seybold Body weight 2021-03-19 13:03:00 101.606 kg Susu ey Seybold BMI 2021-03-19 13:03:00 31.24 kg/m2 Susu ey Seybold Systolic blood pressure 2021-02-17 13:13:00 160 mm[Hg] Inge Seybo ld Diastolic blood pressure 2021-02-17 13:13:00 102 mm[Hg] Inge Seybo ld Body temperature 2021-02-17 13:13:00 36.11 Lucina Inge Seybold Respiratory rate 2021-02-17 13:13:00 14 /min Inge Seybold Body height 2021-02-17 13:13:00 180.3 cm Susu ey Seybold Body weight 2021-02-17 13:13:00 100.336 kg Susu ey Seybold BMI 2021-02-17 13:13:00 30.85 kg/m2 Susu ey Seybold Procedures Procedure Date / Time Performed Performing Clinicia n Source LS RAPID FLU ASSAY-LAB TEST 2023-05-05 22:17:00 Theresa Ibarra - External Encounters Start Date/Time End Date/Time Encounter Type Admission Type Attending [facility] Care Department Encounter ID Source 2024-04-12 08:15:00 2024-04-12 08:15:00 Outpatient THERESA IBARRA [id number] Inge Anne 2024-02-05 00:00:00 2024-02-05 00:00:00 Outpatient HUNDLTIP INGE PRABHAKAR [id number] Inge Lawsybdada 2024-01-10 00:00:00 2024-01-10 00:00:00 Outpatient SAROJLETICIA INGE PRABHAKAR [id number] Inge Lawsybdada 2024-01-09 09:05:00 2024-01-09 09:05:00 Outpatient LAB90 INGE PRABHAKAR [id number] Inge Lawsybdada 2024-01-09 08:15:00 2024-01-09 08:15:00 Outpatient SAROJLETICIA GALLARDO INGE PRABHAKAR [id number] Inge Seybdada 2023-05-05 16:00:00 2023-05-05 16:00:00 Outpatient PREZAS, THERESA [facility]GE [facility] [id number] [facility] 2023-05-05 00:00:00 2023-05-05 00:00:00 Outpatient PREZAS, THERESA [facility]ABHAKAR [id number] [facility] 2023-03-02 00:00:00 2023-03-02 00:00:00 Outpatient HUNDL, TIP INGE PRABHAKAR [id number] Inge Seybdada 2022-12-28 13:00:00 2022-12-28 13:00:00 Outpatient HUNDL, TIP INGE PRABHAKAR [id number] [facility] 2022-12-23 17:15:00 2022-12-23 17:15:00 Outpatient LABVibha INGE PRABHAKAR [id number] Inge Seybold 2022-12-23 16:30:00 2022-12-23 16:30:00 Outpatient HUNDL, TIP INGE PRABHAKAR [id number] Inge Seybold 2022-11-29 15:30:00 2022-11-29 15:30:00 Outpatient PREZAS, THERESA INGE PRABHAKAR [id number] Inge Seybold 2022-10-07 00:00:00 2022-10-07 00:00:00 Outpatient PREZAS, THERESA PRABHAKAR [id number] Inge Seybold 2022-08-08 16:15:00 2022-08-08 16:15:00 Outpatient LETICIA KYLE [id number] [facility] 2022-07-26 00:00:00 2022-07-26 00:00:00 Outpatient SAROJ, LETICIA PRABHAKAR INGE [id number] Inge [facility] 2022-07-26 00:00:00 2022-07-26 00:00:00 Outpatient SAROJLETICIA GALLARDO INGE [id number] [facility] 2022-07-05 16:00:00 2022-07-05 16:00:00 Outpatient SAROJ, LETICIA PRABHAKAR INGE [id number] [facility] 2022-06-16 00:00:00 2022-06-16 00:00:00 Outpatient SAROJ, LETICIA PRABHAKAR INGE [id number] Inge [facility] 2022-06-06 00:00:00 2022-06-06 00:00:00 Outpatient SAROJLETICIA GALLARDO INGE PRABHAKAR [id number] [facility] 2022-05-09 00:00:00 2022-05-09 00:00:00 Outpatient SAROJ, LETICIA PRABHAKAR INGE [id number] [facility] 2022-05-09 00:00:00 2022-05-09 00:00:00 Outpatient SAROJ, LETICIA CEDILLOJOSE RAFAEL PRABHAKAR [id number] [facility] 2021-04-14 16:30:00 2021-04-14 16:30:00 Outpatient LETICIA KYLE INGE PRABHAKAR [id number] [facility] 2021-04-07 00:00:00 2021-04-07 00:00:00 Outpatient LETICIA KYLE INGE [id number] [facility] 2021-03-19 07:57:49 2021-03-19 08:27:49 Office Visit Leticia Kyle Jose Thompson Jackson [id number] [facility] 2021-02-17 08:11:36 2021-02-17 08:41:36 Office Visit SarojLeticia gallardo Jose Vanderbilt [id number] [facility] Notes Date/Time Note Provider Source 2024-01-09 07:57:45 Chief Complaint Patient presents with Diabetes He did a work physical and was told he has uncontrolled diabetes. He was told he needs to follow up with PCP before he can go back to work. Blood work also showed possible fatty liver and he was told he needed an ultrasound. Anna Fitzgerald MA II Anna Fitzgerald MA, II [facility] 2022-12-23 16:15:58 Formatting of this n ote might be different from the original. The patient is in the office today for his annual physical. No c/o voiced. Reviewed Allergies and medications. Cassie Jacobs [facility]
[2024-03-20] MEDS ORDERED: ASPIRIN 325 MG TAB ONE (13:25)
[2024-03-20 13:27] LABS: Absolute Lymphocytes (CBC) 0.8 K/uL (0.7-4.9); Absolute Monocytes 0.5 K/uL (0.1-1.3); Absolute Neutrophil 7.3 K/uL (1.8-8.0); Basophils % 0.3 % (0-1.3); Eosinophils % 0.5 % (0-4.4); Hematocrit 43.8 % (39.6-49.0); Hemoglobin 14.8 g/dL (13.6-17.9); MCH 34.1 pg (27.0-35.0); MCHC 33.9 g/dL (32.0-36.0); MCV 100.5 fL (80-100); MPV 7.6 fL (7.6-11.3); Monocytes % 5.4 % (3.3-12.3); Neutrophils % 84.8 % (41.7-73.7); Platelets 207 thou/uL (152-406); RBC Red Blood Cell Count 4.36 M/uL (4.33-5.43); Red Cell Distribution Width 12.7 % (12.1-15.2)
[2024-03-20 13:32] LABS: PT Prothrombin Time 11.4 SECONDS (9.4-12.5); Protime INR 1.02
[2024-03-20 13:48] LABS: Anion Gap 7.5 mEq/L (5.0-15.0); BUN Blood Urea Nitrogen 27 mg/dL (7-18); Bicarbonate 28 mEq/L (21-32); Glomerular Filtration Rate 72 ml/min (=/>90); Glucose Level 180 mg/dL (74-106); NT PRO-BNP 14 pg/mL (<125); Potassium 4.5 mEq/L (3.5-5.1); Sodium Level 132 mEq/L (136-145)
--- NOTE | 2024-03-20 13:48 | RAD REPORT ---
EXAMINATION: ONE VIEW CHEST XR CLINICAL INDICATION: CHEST PAIN TECHNIQUE: Frontal chest projection is submitted. Examination is limited by patient positioning and t echnique. COMPARISON: 11/25/2019 FINDINGS: Mild bilateral pulmonary edema is suspected. The heart is upper limit of normal in size. No displaced fractures identified. IMPRESSION: Mild CHF versus volume overload pattern is suspected.
[2024-03-20 13:49] LABS: Troponin High Sensitivity < 3.0 pg/mL (<58.9)
--- NOTE | 2024-03-20 16:36 | EDPHYS ---
Physician Documentation [facility] Name: Jasper Waller III Age: 63 yrs Sex: Male : 1960 Arrival Date: 03/20/2024 Time: 12:50 Bed 18 Private MD: ED Physician Raissa Davenport HPI: 03/20 16:32 This 63 yrs old Male presents to ER via Wheelchair with complaints of Chest Pain. ci 16:32 Patient is a 63-year-old male with PMH hypertension, diabetes who presents to the ED ci with chief complaint of midsternal chest pain that began around 10 AM today. Patient states initially he was choking on his food but that resolved and he developed chest pain that is radiating into the left shoulder. Patient reports pain has resolved since arrival to the ER. Had some shortness of breath but no diaphoresis, nausea/vomiting.. Historical: - Allergies: 13:04 No Known Allergies; ll1 - PMHx: 13:04 Hypertension; Diabetes mellitus; ll1 - Immunization history:: Adult Immunizations up to date. - Infectious Disease History:: Denies. - Social history:: Smoking status: Reported history of juuling and/or vaping. ROS: 20:25 Constitutional: Negative for fever, chills, and weight loss, ci 20:25 Cardiovascular: Positive for chest pain, Negative for edema, orthopnea, palpitations, 20:25 Respiratory: Negative for cough, shortness of breath, sputum production, wheezing, 20:25 Abdomen/GI: Negative for abdominal pain, nausea, vomiting, and diarrhea, Exam: 20:25 Constitutional: This is a well developed, well nourished patient who is awake, alert, ci and in no acute distress. Head/Face: Normocephalic, atraumatic. Eyes: Pupils equal round and reactive to light, extra-ocular motions intact. Lids and lashes normal. Conjunctiva and sclera are non-icteric and not injected. Cornea within normal limits. Periorbital areas with no swelling, redness, or edema. ENT: Nares patent. No nasal discharge, no septal abnormalities noted. Tympanic membranes are normal and external auditory canals are clear. Oropharynx with no redness, swelling, or masses, exudates, or evidence of obstruction, uvula midline. Mucous membranes moist. Neck: Trachea midline, no thyromegaly or masses palpated, and no cervical lymphadenopathy. Supple, full range of motion without nuchal rigidity, or vertebral point tenderness. No Meningismus. Chest/axilla: Normal chest wall appearance and motion. Nontender with no deformity. No lesions are appreciated. Cardiovascular: Regular rate and rhythm with a normal S1 and S2. No gallops, murmurs, or rubs. Normal PMI, no JVD. No pulse deficits. Respiratory: Lungs have equal breath sounds bilaterally, clear to auscultation and percussion. No rales, rhonchi or wheezes noted. No increased work of breathing, no retractions or nasal flaring. Abdomen/GI: Soft, non-tender, with normal bowel sounds. No distension or tympany. No guarding or rebound. No evidence of tenderness throughout. Skin: Warm, dry with normal turgor. Normal color with no rashes, no lesions, and no evidence of cellulitis. MS/ Extremity: Pulses equal, no cyanosis. Neurovascular intact. Full, normal range of motion. Neuro: Awake and alert, GCS 15, oriented to person, place, time, and situation. Cranial nerves II-XII grossly intact. Motor strength 5/5 in all extremities. Sensory grossly intact. Cerebellar exam normal. Normal gait. Vital Signs: 13:02 BP 129 / 88; Pulse 99; Resp 18; Temp 97.7; Pulse Ox 100% on R/A; Weight 97.52 kg; ll1 Height 5 ft. 11 in. ; Pain 8/10; 14:44 BP 132 / 79; Pulse 99; Resp 27; Pulse Ox 97% ; bp 16:42 BP 141 / 75; Pulse 85; Resp 16; Temp 98; Pulse Ox 97% ; bp 13:02 Body Mass Index 29.99 (97.52 kg, 180.34 cm) ll1 13:02 Pain Scale: Adult ll1 MDM: 12:52 Medical Screening Exam initiated ci 16:00 HEART Score: History: Moderately Suspicious (1), ECG: Normal (0), Age: > 45 and < 65 ci years (1), Risk Factors: 1 or 2 risk factors (1), Troponin: < or = 1 x Normal Limit (0), Total Score = 3. The patient was given aspirin in the Emergency Department. Data reviewed: vital signs, nurses notes. ED course: EKG shows sinus rhythm, HR 98, no acute ischemic changes, PVCs noted. Chest pain resolved in the ED. CXR shows questionable CHF. Patient does not appear clinically volume overloaded, no pedal edema, no respiratory distress, no new oxygen requirement. Stable for discharge with close outpatient follow-up.. 16:00 Special discussion: Based on the patient's history, exam, and Dx evaluation, there is ci no indication for emergent intervention or inpatient Tx. It is understood by the patient/guardian that if the Sx's persist or worsen they need to return immediately for re-evaluation. 16:00 Differential diagnosis: coronary artery disease congestive heart failure ci costochondritis, pulmonary embolus, thoracic aortic disection. 03/20 13:04 Order name: Basic Metabolic Panel; Complete Time: 13:50 bp 03/20 13:04 Order name: CBC with Diff; Complete Time: 13:50 bp 03/20 13:04 Order name: NT PRO-BNP; Complete Time: 13:50 bp 03/20 13:04 Order name: PT-INR; Complete Time: 13:50 bp 03/20 13:04 Order name: Troponin HS; Complete Time: 13:50 bp 03/20 15:52 Order name: Troponin HS; Complete Time: 16:25 bp 03/20 13:04 Order name: XRAY Chest (1 view); Complete Time: 13:50 bp 03/20 16:34 Interpretation: Mild CHF. ci 03/20 13:04 Order name: EKG; Complete Time: 13:04 bp 03/20 13:04 Order name: Cardiac monitoring; Complete Time: 13:04 bp 03/20 13:04 Order name: EKG - Nurse/Tech; Complete Time: 13:04 bp 03/20 13:04 Order name: IV Saline Lock; Complete Time: 13:40 bp 03/20 13:04 Order name: Labs collected and sent; Complete Time: 13:40 bp 03/20 13:04 Order name: O2 Per Protocol; Complete Time: 13:04 bp 03/20 13:04 Order name: O2 Sat Monitoring; Complete Time: 13:04 bp Administered Medications: 13:30 Drug: Aspirin PO 325 mg PO once Route: PO; bp 13:37 Follow up: Response: No adverse reaction bp Disposition Summary: 03/20/24 16:35 Discharge Ordered Notes: Location: Home ci Condition: Stable ci Diagnosis - Chest pain, unspecified ci Followup: ci - With: Private Physician - When: 2 - 3 days - Reason: Recheck today's complaints, Re-evaluation by your physician Discharge Instructions: - Discharge Summary Sheet ci - Nonspecific Chest Pain, Adult, [id number] ci Forms: - Medication Reconciliation Form ci - Antibiotic Education ci - Prescription Opioid Use ci - Patient Portal Instructions ci - Leadership Thank You Letter ci Signatures: Dispatcher [employer] EDMS James Asif, RN RN Layla Davis RN RN ll1 Raissa Davenport ci Corrections: (The following items were deleted from the chart) 13:04 13:04 BASIC METABOLIC PANEL+C.LAB.BRZ ordered. EDMS EDMS 13:04 13:04 CBC+H.LAB.BRZ ordered. EDMA EDMS 13:04 13:04 PROBNP+C.LAB.BRZ ordered. EDMA EDMS 13:04 13:04 PROTIME (+INR)+COAG.LAB.BRZ ordered. EDMA EDMS 13:04 13:04 Troponin High Sensitivity+C.LAB.BRZ ordered. EDMA EDMS 20:30 20:22 Data reviewed: vital signs, nurses notes, ci ci 20:30 20:22 Differential diagnosis: coronary artery disease congestive heart failure ci costochondritis, pulmonary embolus, thoracic aortic disection, ci 20:30 20:22 HEART Score: History: Moderately Suspicious (1), ECG: Normal (0), Age: > 45 and < ci 65 years (1), Risk Factors: 1 or 2 risk factors (1), Troponin: < or = 1 x Normal Limit (0), Total Score = 3 ci 20:30 20:22 The patient was given aspirin in the Emergency Department. ci ci 20:30 20:22 ED course: EKG shows sinus rhythm, HR 98, no acute ischemic changes, PVCs noted. ci Chest pain resolved in the ED. CXR shows questionable CHF. Patient does not appear clinically volume overloaded, no pedal edema, no respiratory distress, no new oxygen requirement. Stable for discharge with close outpatient follow-up.. ci
--- NOTE | 2024-03-20 16:36 | ER ---
Nurse's Notes [facility] Name: Jasper Waller III Age: 63 yrs Sex: Male : 1960 Arrival Date: 03/20/2024 Time: 12:50 Bed 18 Private MD: Diagnosis: Chest pain, unspecified Presentation: 03/20 13:02 Chief complaint: Patient states: Left sided chest pain onset this morning. Pt states ll1 that it feels like someone kicked him in the chest. PT states that the pain radiates to his left shoulder. Coronavirus screen: Client denies travel out of the [place] in the last 14 days. Ebola Screen: Patient denies travel to an Ebola-affected area in the 21 days before illness onset. No symptoms or risks identified at this time. Initial Sepsis Screen: Does the patient meet any 2 criteria? HR > 90 bpm. Does the patient have a suspected source of infection? No. Patient's initial sepsis screen is negative. Risk Assessment: Do you want to hurt yourself or someone else? Patient reports no desire to harm self or others. Onset of symptoms was March 20, 2024. 13:02 Method Of Arrival: Wheelchair ll1 13:02 Acuity: JOSE 2 ll1 Triage Assessment: 13:04 General: Appears in no apparent distress. comfortable, Behavior is calm, cooperative. ll1 Neuro: No deficits noted. Level of Consciousness is awake, alert, obeys commands, Oriented to person, place, time, situation, Appropriate for age. Respiratory: No deficits noted. Airway is patent Respiratory effort is even, unlabored, Respiratory pattern is regular, symmetrical. Historical: - Allergies: 13:04 No Known Allergies; ll1 - PMHx: 13:04 Hypertension; Diabetes mellitus; ll1 - Immunization history:: Adult Immunizations up to date. - Infectious Disease History:: Denies. - Social history:: Smoking status: Reported history of juuling and/or vaping. Screenin:05 [facility] ED Fall Risk Assessment (Adult) History of falling in the last 3 months, bp including since admission No falls in past 3 months (0 pts) Confusion or Disorientation No (0 pts) Intoxicated or Sedated No (0 pts) Impaired Gait No (0 pts) Mobility Assist Device Used No (0 pt) Altered Elimination No (0 pt) Score/Fall Risk Level 0 - 2 = Low Risk. Abuse screen: Denies threats or abuse. Denies injuries from another. Nutritional screening: No deficits noted. Tuberculosis screening: No symptoms or risk factors identified. Assessment: 13:05 General: Appears in no apparent distress. Behavior is calm, cooperative, appropriate bp for age. Pain: Complains of pain in chest Pain does not radiate. Pain began 2-3 days ago. Neuro: No deficits noted. Cardiovascular: Reports chest pain. Respiratory: No deficits noted. GI: No signs and/or symptoms were reported involving the gastrointestinal system. : No signs and/or symptoms were reported regarding the genitourinary system. EENT: No deficits noted. Derm: No deficits noted. Musculoskeletal: No deficits noted. 16:42 Reassessment: Patient appears in no apparent distress at this time. Patient is alert, bp oriented x 3, equal unlabored respirations, skin warm/dry/pink. Vital Signs: 13:02 BP 129 / 88; Pulse 99; Resp 18; Temp 97.7; Pulse Ox 100% on R/A; Weight 97.52 kg; ll1 Height 5 ft. 11 in. ; Pain 8/10; 14:44 BP 132 / 79; Pulse 99; Resp 27; Pulse Ox 97% ; bp 16:42 BP 141 / 75; Pulse 85; Resp 16; Temp 98; Pulse Ox 97% ; bp 13:02 Body Mass Index 29.99 (97.52 kg, 180.34 cm) ll1 13:02 Pain Scale: Adult ll1 ED Course: 12:51 Patient arrived in ED. ra3 12:52 Raissa Davenport is Attending Physician. ci 12:55 James Asif, RN is Primary Nurse. bp 13:04 Triage completed. ll1 13:04 Arm band placed on Patient placed in an exam room, on a stretcher, on parts fabricator, ll1 on pulse oximetry. EKG completed in triage. Results shown to MD. 13:05 Patient has correct armband on for positive identification. Provided Education on: N/A. bp Client placed on continuous cardiac and pulse oximetry monitoring. NIBP monitoring applied. road hogger operator on. Pulse ox on. NIBP on. 13:05 EKG done, by ED staff, reviewed by Raissa Davenport. ll1 13:05 Initial lab(s) drawn, by ED staff, sent to lab. Inserted saline lock: 20 gauge in right bp antecubital area, using aseptic technique. Blood collected. Flushed with 10 mL NS. 13:31 XRAY Chest (1 view) In Process Unspecified. EDMS 16:42 No provider procedures requiring assistance completed. IV discontinued, intact, bp bleeding controlled, No redness/swelling at site. Pressure dressing applied. Patient maintains SpO2 saturation greater than 95% on room air. Administered Medications: 13:30 Drug: Aspirin PO 325 mg PO once Route: PO; bp 13:37 Follow up: Response: No adverse reaction bp Medication: 13:05 VIS not applicable for this client. bp Outcome: 16:35 Discharge ordered by . ci 16:42 Discharged to home ambulatory, bp 16:42 Condition: stable 16:42 Discharge instructions given to patient, Instructed on discharge instructions, follow up and referral plans. Demonstrated understanding of instructions, follow-up care, 16:43 Patient left the ED. bp Signatures: Dispatcher [employer] EDMS James Asif RN RN Layla Davis RN RN ll1 Raissa Davenport Ruby ra3
[2024-03-20 17:18] VITALS: O2SAT 97
[2024-03-20 17:19] VITALS: BP 141/75; TEMP 98
--- NOTE | 2024-03-21 11:10 | EKG ---
Test Date: 2024-03-20 Test Time: 12:57:41 Program Development Specialist: TEREZA MEASUREMENT RESULTS: Intervals: Rate: 98 GA: 162 QRSD: 82 QT: 348 QTc: 444 [place]: P: 58 GA: 162 QRS: 28 T: 74 INTERPRETIVE STATEMENTS: Sinus rhythm Normal ECG Compared to ECG 11/25/2019 16:09:28 Ventricular premature complex(es) no longer present Electronically Signed On 03-21-24 11:07:49 CDT by Nader Ng
== END 2024-03-20 16:43 | disposition home or self-care (01) ==
LOC: ER 12:50
DX: R07.9 Chest pain, unspecified (principal); E11.9 Type 2 diabetes mellitus without complications; I10 Essential (primary) hypertension
CPT/HCPCS: 36415; 71045; 80048; 83880; 84484; 85025; 85610; 93005; 99285